=== PATIENT | female | born 1990 | race Caucasian/White ===

== ENCOUNTER 2019-01-31 08:34 | Emergency (ER) | payer SELFPAY ==
[~2019-01-31] VITALS: Ht 160 cm; Wt 68.1 kg
[2019-01-31 08:39] VITALS: Ht 160 cm; Wt 68.1 kg
[2019-01-31] MEDS ORDERED: SOD CHLORIDE 0.9% 1,000 ML IV STA (09:36)
[2019-01-31] MEDS ORDERED: morphine 4 MG/ML VIAL IV STA (09:36)
[2019-01-31] MEDS ORDERED: ONDANSETRON 4 MG INJ IV STA (09:36)
--- NOTE | 2019-01-31 09:59 | ERD ---
ER Documentation Chief Complaint Chief Complaint RLQ ABD PAIN RADITING TO BACK WITH VOMITING , ONSET 0200 AM HPI This is a 28-year-old female with a nonsignificant past medical history presents ED with right lower quadrant abdominal pain that started around 2 AM this morning. Patient describes the pain as stabbing and rates it at a 10 out of 10 pain. Patient states the pain is shooting to the right low back. Patient admits to nausea with 2 episodes of nonbilious nonbloody vomiting. Denies any fever, chills, dysuria, hematuria, diarrhea, constipation, hematemesis, hemoptysis, melena, hematochezia, chest pain, shortness breath, trouble breathing. . Last menstrual 01-22-19. No vaginal discharge or vaginal pain. Allergy to Toradol. Denies IV drug abuse, alcohol use and tobacco use. ROS All systems reviewed and are negative except as per history of present illness. Allergies Allergies: Coded Allergies: ketorolac (Verified Allergy, Unknown, 01/31/19) PMhx/Soc Medical and Surgical Hx: pt denies Medical Hx, pt denies Surgical Hx History of Surgery: Yes (gallbladder) Hx Alcohol Use: No Hx Substance Use: No Hx Tobacco Use: No Smoking Status: Never smoker FmHx Family History: No diabetes Physical Exam Vitals Vital Signs Date Temp Pulse Resp B/P (MAP) Pulse Ox O2 O2 Flow FiO2 Time Delivery Rate 01/31/19 98.0 105 18 115/66 98 08:39 (82) Physical Exam Physical Exam Vitals signs: Reviewed by me. General: Well developed, well nourished, in moderate distress. Patient is awake and alert. Head: Normocephalic, atraumatic. Eyes: Normal conjunctiva, Pupils PERRLA, EOM intact grossly ENT: Pharynx is clear, Moist mucous membranes, external ears, nose and mouth normal Neck: Supple, no masses, lymphadenopathy or JVD Respiratory: Clear to auscultation bilaterally with no wheezing, rhonchi, rales, no distress Cardiovascular: RRR, no murmurs, rubs, or gallops Abdominal: Soft, nondistended, no peritoneal signs, no surgical abdomen, bowel sounds present all 4 quadrants, moderate tenderness palpation in the right lower quadrant, no rebound tenderness, nontender in all other quadrants, Francisco sign negative, s Back: No midline tenderness. No flank tenderness, no CVA tenderness Neurologic: Alert and oriented, moving all extremities, normal speech, no focal weakness, no cerebellar signs. Normal mentation Skin: warm and dry, No rash Psych: Normal mood Result Diagram: 01/31/19 0950 01/31/19 0950 Results 24 hrs Laboratory Tests Test 01/31/19 09:30 01/31/19 09:50 01/31/19 10:09 Urine Color YELLOW Urine Clarity SLIGHTLY CLOUDY Urine pH 7.0 Urine Specific [place] 1.015 Urine Ketones TRACE mg/dL Urine Nitrite NEGATIVE mg/dL Urine Bilirubin NEGATIVE mg/dL Urine Urobilinogen NEGATIVE mg/dL Urine Leukocyte Esterase TRACE Chi/ul Urine Microscopic RBC 4 /HPF Urine Microscopic WBC 18 /HPF Urine Squamous Epithelial Cells FEW /HPF Urine Bacteria FEW /HPF Urine Mucus FEW /HPF Urine Hemoglobin NEGATIVE mg/dL Urine Glucose NEGATIVE mg/dL Urine Total Protein NEGATIVE mg/dl White Blood Count 6.3 10^3/ul Red Blood Count 4.86 10^6/ul Hemoglobin 13.6 g/dl Hematocrit 41.1 % Mean Corpuscular Volume 84.6 fl Mean Corpuscular Hemoglobin 28.0 pg Mean Corpuscular 33.1 g/dl Hemoglobin Concent Red Cell Distribution Width 12.9 % Platelet Count 332 10^3/UL Mean Platelet Volume 9.9 fl Immature Granulocytes % 0.300 % Neutrophils % 79.7 % Lymphocytes % 14.0 % Monocytes % 5.5 % Eosinophils % 0.2 % Basophils % 0.3 % Nucleated Red Blood Cells % 0.0 /100WBC Immature Granulocytes # 0.020 10^3/ul Neutrophils # 5.1 10^3/ul Lymphocytes # 0.9 10^3/ul Monocytes # 0.4 10^3/ul Eosinophils # 0.0 10^3/ul Basophils # 0.0 10^3/ul Nucleated Red Blood Cells # 0.0 10^3/ul Sodium Level 145 mmol/L Potassium Level 4.1 mmol/L Chloride Level 108 mmol/L Carbon Dioxide Level 23 mmol/L Anion Gap 14 Blood Urea Nitrogen 7 mg/dl Creatinine 0.69 mg/dl Est Glomerular Filtrat > 60 mL/min Rate mL/min Glucose Level 116 mg/dl Calcium Level 10.0 mg/dl Total Bilirubin 0.3 mg/dl Direct Bilirubin 0.00 mg/dl Indirect Bilirubin 0.3 mg/dl Aspartate Amino 30 IU/L Transf (AST/SGOT) Alanine 37 IU/L Aminotransferase (ALT/SGPT) Alkaline Phosphatase 92 IU/L Total Protein 8.3 g/dl Albumin 4.4 g/dl Globulin 3.90 g/dl Albumin/Globulin Ratio 1.12 Lipase 72 U/L POC Beta HCG, Qualitative NEGATIVE Current Medications Medications Dose Sig/Mohinder Start Time Status Last (Trade) Ordered Route PRN Stop Time Admin Dose Reason Admin Sodium 1,000 ml @ Q1H STAT 01/31/19 DC 01/31/19 Chloride 1,000 mls/hr IV 09:36 09:54 01/31/19 10:35 Morphine 6 mg ONCE STAT 01/31/19 DC 01/31/19 Sulfate IV 09:36 09:55 (morphine) 01/31/19 09:39 Ondansetron 4 mg ONCE STAT 01/31/19 DC 01/31/19 HCl (Zofran IV 09:36 09:55 Inj) 01/31/19 09:39 Procedures/MDM EKG, MONITORS, & DIAGNOSTIC IMAGING: [place] [id number] Radiology Main Line: [phone] DIAGNOSTIC IMAGING REPORT Patient: MASOUD JEAN BAPTISTE : 1990 Age: 28 Sex: F MR #: [id number] DOS: 01/31/19 0936 Ordering MD: GEORGINA BARKER PA-C Location: [facility] Room/Bed: PROCEDURE: US Pelvis. CLINICAL INDICATION: Pelvic pain TECHNIQUE: Multiple sonographic images of the pelvis were obtained utilizing a transabdominal and endovaginal technique. The images were reviewed on a PACS workstation. Transvaginal ultrasound evaluation is incomplete due to severe pain. COMPARISON: None. FINDINGS: The uterus is visualized and measures 8.0 x 3.9 x 4.7 cm. The endometrial echo complex is normal and measures 5 mm. There is no evidence for free fluid. The right ovary has a normal echotexture and measures 3.6 x 2.0 x 2.7 cm . The left ovary has a normal echotexture and measures 3.5 x 1.9 x 2.2 cm. There is normal flow on both ovaries in color Doppler images. No adnexal masses are noted. IMPRESSION: Unremarkable pelvic ultrasound. RPTAT: PP Physician Niyah Date Time Electronically viewed and signed by juventino Tyson Physician on 01/31/2019 10:34 rV/ CC: GEORGINA BARKER PA-C [id number] LAB INTERPRETATION: CBC shows no evidence of hemorrhage or infection Chemistry shows no evidence of significant electrolyte abnormalities or renal insufficiency Liver function test shows no evidence of acute biliary or hepatic dysfunction Lipase shows no evidence of acute pancreatitis Urinalysis remarkable for 18 WBCs, 4 RBCs and trace leukocyte esterase, ER COURSE: The patient was given morphine, normal saline, Zofran The medication was well tolerated and the patient reports improvement in symptoms. The patient was stable throughout ED course. I kept the patient and/or family informed of laboratory and diagnostic imaging results throughout the emergency room course. The patient was promptly evaluated and a treatment plan was devised based on H&P and other data. This plan was discussed with the patient who agreed and had no further questions or concerns prior to discharge. MEDICAL DECISION MAKING: This is a 28-year-old female presents ED with right lower quadrant abdominal pain that started this morning at 2 AM. Non- woman presenting with abdominal pain. test is negative. Considered causes of female-specific abdominal pain including pelvic inflammatory disease, tubo-ovarian abscess, [id number], and ovarian torsion. Also considered causes of abdominal pain that are not gender-specific (e.g., appendicitis, volvulus, small bowel obstruction, mesenteric adenitis, acute cholecystitis/choledocholithiasis and other biliary pathology, etc.). Patient was given IV morphine Zofran and IV normal saline for pain. Lab work and ultrasound were performed. Ultrasound of the abdomen pelvis shows no evidence of ovarian torsion of tubo-ovarian abscess. prior to receiving CT of the abdomen and pelvis without IV contrast patient had told nursing that she was going to use the restroom -patient never returned from the restroom. Patient has eloped from the hospital. Patient currently does have her IV in place. Given patient's behavior I have high suspicion for drug- seeking. police report was filed by nursing. I used cures to research patient's history of narcotic use and under patient's given name there is no record. Unable to rule out appendicitis, small bowel obstruction, perforated viscus, among others without CT imaging and without evaluating patient as she is no longer in hospital. Disclaimer: Inadvertent spelling and grammatical errors are likely due to EHR/dictation software use and do not reflect on the overall quality of patient care. Also, please note that the electronic time recorded on this note does not necessarily reflect the actual time of the patient encounter. Departure Diagnosis: Primary Impression: Abdominal pain Abdominal location: right lower quadrant Qualified Codes: R10.31 - Right lower quadrant pain Condition: Stable Patient Instructions: Abdominal Pain Referrals: [facility] GEORGINA BARKER PA-C Jan 31, 2019 09:59
== END 2019-01-31 12:57 | disposition left against medical advice (07) ==
LOC: FTE 08:34
DX: R10.31 Right lower quadrant pain (principal); R11.10 Vomiting, unspecified; R10.2 Pelvic and perineal pain
CPT/HCPCS: 76830; 76856; 80053; 81001; 81025; 83690; 85025; J2270; J2405; J7030; 36415; 96374; 96375